=== PATIENT | male | born 1960 | race Caucasian/White ===

== ENCOUNTER 2016-03-12 05:06 | Day surgery (SDC) | payer BC, OTHER ==
[~2016-03-12] VITALS: Ht 180.3 cm; Wt 89.0 kg
--- NOTE | ~2016-03-12 | O ---
[facility] [place] [address] OPERATIVE REPORT Name: BALBINA RICHARD Room #: DEP [facility] [place] M.Umang.#: [id number] Admission: 03/12/16 Attend Phys: Alex Anderson MD Discharge: 03/12/16 Date of : 58 Report #: [id number] THIS REPORT FOR: //name// CC: Dhiraj Anderson DATE OF SERVICE: 03/12/2016 PREOPERATIVE DIAGNOSIS: Right lateral malleolus fracture with syndesmosis injury. POSTOPERATIVE DIAGNOSIS: Right lateral malleolus fracture with syndesmosis injury. PROCEDURE: 1. ORIF, right lateral malleolus. 2. ORIF, right syndesmosis. SURGEON: Alex Anderson M.D. GLASS FINISHER: Ligia Delgadillo PA-C. ANESTHESIA: LMA with a popliteal nerve block. IMPLANTS USED: Synthes 8-hole 1/3 tubular plate for lateral malleolus fixation with 2 syndesmosis screws for syndesmosis fixation. TOURNIQUET TIME: 60 minutes. COMPLICATIONS: None. SPECIMENS: None. CONDITION UPON LEAVING THE OPERATING ROOM: Stable. INDICATIONS FOR PROCEDURE: The patient is a 55-year-old gentleman who slipped on some ice and sustained a right lateral malleolus fracture with a syndesmotic disruption. After discussion with him, he elected for ORIF of his lateral malleolus and syndesmosis. DESCRIPTION OF PROCEDURE: Risks, benefits, alternatives, complications were discussed in detail with the patient including but not limited to risk of anesthesia, risk of damage to nerves, arteries, blood vessels, risk for infection, bleeding, risk for malunion, nonunion and need for reoperation. Informed consent was obtained from the patient. The right ankle was appropriately marked in the preoperative holding area, 2 grams IV Ancef for [facility] [address] [place] [address] OPERATIVE REPORT Name: BALBINA RICHARD Room #: DEP JAYLYN Calvo#: [id number] Admission: 03/12/16 Attend Phys: Alex Anderson MD Discharge: 03/12/16 Date of : 58 Report #: [id number] preoperative antibiotics, was brought to the operating room and placed in supine position on operating room table. LMA anesthesia was induced without complication. Tourniquet was placed on the right thigh. Right lower extremity was prepped and draped in normal sterile fashion. Timeout was performed properly identifying the patient, procedure as well as instrumentation and implants. All in the operating room were in agreement. Right lower extremity was exsanguinated, tourniquet was inflated. Tourniquet time was 50 minutes. Standard lateral approach to the fibula was made with a 15 blade through the skin. Dissection was taken down sharply to the fibula and dissection was taken off the fibula anteriorly and posteriorly. The lateral malleolus fracture was identified, cleaned out, curetted and held provisionally reduced with [id number] reduction forceps. An 8-hole 1/3 tubular plate was then used for fracture fixation and 3 proximal cortical screws and one distal cancellous screw was placed. After this, fluoroscopic images were taken to verify adequate fracture reduction. An external rotation stress view was performed and it showed to have opening of the medial clear space. After this, two syndesmosis screws were placed with the foot held in maximum dorsiflexion to reduce the syndesmosis. After this, final fluoroscopic images were taken, AP, lateral, mortise as well as external rotation stress view and found to have adequate fracture reduction and placement of hardware. Wound was thoroughly irrigated with normal saline. Deep tissues closed with 0 Vicryl, skin was closed with 2-0 Vicryl and 3-0 nylon. Soft dressing of Adaptic, 4 x 4, Webril and a short leg splint were applied. The patient tolerated this procedure well and went to the recovery room under care of anesthesia postoperatively. <ELECTRONICALLY SIGNED> By: Alex Anderson MD 03/14/16 [id number] Alex Anderson MD /nt
[~2016-03-12 05:06] MED LIST: ALEVE220 MG PO
[2016-03-12 08:06] VITALS: BP 140/83
[2016-03-12 09:26] VITALS: BP 140/83
== END 2016-03-12 10:15 | disposition home or self-care (01) ==
LOC: TBA 05:06 → OR 05:06 → PRE 08:26 → EDSTATUS 08:27 → OR 08:51
DX: S82.61XA Displaced fracture of lateral malleolus of right fibula, initial encounter for closed fracture (principal); M19.90 Unspecified osteoarthritis, unspecified site; S93.431A Sprain of tibiofibular ligament of right ankle, initial encounter; X58.XXXA Exposure to other specified factors, initial encounter; Y93.89 Activity, other specified; Y92.89 Other specified places as the place of occurrence of the external cause; Y99.8 Other external cause status; Z85.828 Personal history of other malignant neoplasm of skin
CPT/HCPCS: 50010; 50101; 50342; 50386; 51131; 51272; 51741; 56527; 56528; 56667; 57091; 62110; 62900; 64037; 70005